=== PATIENT | male | born 1940 | race Hispanic/Latino ===

== ENCOUNTER 2021-05-16 09:17 | Emergency (ER) | payer MEDICARE, OTHER ==
[2021-05-16 10:10] LABS: #Basophils 0.1 thou/uL (0.0-0.2); #Eosinphils 0.2 thou/uL (0.0-0.7); #Lymphocytes 1.8 thou/uL (1.20-3.40); #Monocytes 0.8 thou/uL (0.11-0.59); #Neutrophils 6.4 thou/uL (1.40-6.50); %Basophils 0.6 % (0.0-1.0); %Eosinophils 1.7 % (0.0-10.0); %Lymphocytes 19.7 % (21.0-51.0); %Monocytes 8.3 % (0.0-10.0); %Neutrophils 69.8 % (42.0-75.0); Hemoglobin 11.6 g/dL (14.0-18.0); Mean Corpuscular HGB CONC 33.8 g/dL (32.0-36.0); Mean Corpuscular Hemoglobin 29.3 pg (27.0-31.0); Mean Corpuscular Volume 86.7 fL (78.0-98.0); Platelet Count 204 thou/uL (130-400); RBC Distribution Width 13.2 % (11.5-14.5); Red Blood Cell (RBC) Count 3.97 mill/uL (4.70-6.10); White Blood Cell (WBC) Count 9.1 thou/uL (4.8-10.8)
[2021-05-16 10:29] LABS: ALT (SGPT) 28 U/L (8-55); AST (SGOT) 17 U/L (5-34); Albumin 3.9 g/dL (3.4-4.8); Alkaline Phosphatase 170 U/L (40-110); Anion Gap 12 mmol/L (10-20); BUN (Urea Nitrogen) 40 mg/dL (8.4-25.7); Bilirubin, Total 0.6 mg/dL (0.2-1.2); Calc. Creatinine Clearance 0 mL/min (70-130); Calcium 9.8 mg/dL (7.8-10.44); Carbon Dioxide 23 mmol/L (23-31); Chloride 104 mmol/L (98-107); Globulin 2.9 g/dL (2.4-3.5); Glucose 188 mg/dL (83-110); Potassium 4.3 mmol/L (3.5-5.1); Protein, Total 6.8 g/dL (5.8-8.1); Sodium 135 mmol/L (136-145)
[2021-05-16 12:02] LABS: Bacteria/HPF None Seen HPF (None Seen); Bilirubin Negative (Negative); Blood, Urine Negative (Negative); Clarity Clear (Clear); Glucose, Urine (Dipstick) Normal (Negative); Ketone, Urine Negative (Negative); Leukocyte 75 Leu/uL (Negative); Nitrite Negative (Negative); Protein, Urine (Dipstick) Negative (Neg-Trace); RBC/HPF 0-3 HPF (0-3); Specific Gravity, Urine 1.015 (1.002-1.036); Squamous Epithelial 0-3 HPF (0-3); Urobilinogen Normal mg/dL (Less than 2); pH, Urine 5.5 (5.0-9.0)
== END 2021-05-16 14:06 | disposition home or self-care (01) ==
LOC: ERS 09:17
DX: R53.1 Weakness (principal); E11.9 Type 2 diabetes mellitus without complications; I10 Essential (primary) hypertension; E78.5 Hyperlipidemia, unspecified; Z79.84 Long term (current) use of oral hypoglycemic drugs
CPT/HCPCS: 36415; 71046; 80053; 81003; 81015; 84484; 85025; 93005

== ENCOUNTER 2021-06-05 03:38 | Inpatient (IN) | payer MEDICARE, OTHER ==
[2021-06-05 04:25] LABS: #Eosinphils 0.2 thou/uL (0.0-0.7); #Lymphocytes 1.4 thou/uL (1.20-3.40); #Monocytes 0.4 thou/uL (0.11-0.59); #Neutrophils 3.4 thou/uL (1.40-6.50); %Basophils 0.8 % (0.0-1.0); %Eosinophils 3.3 % (0.0-10.0); %Neutrophils 61.9 % (42.0-75.0); Hemoglobin 12.2 g/dL (14.0-18.0); Mean Corpuscular Hemoglobin 28.7 pg (27.0-31.0); Mean Platelet Volume 8.4 fL (7.4-10.4); Platelet Count 201 thou/uL (130-400); RBC Distribution Width 12.8 % (11.5-14.5); Red Blood Cell (RBC) Count 4.26 mill/uL (4.70-6.10); White Blood Cell (WBC) Count 5.5 thou/uL (4.8-10.8)
[2021-06-05 04:43] LABS: ALT (SGPT) 22 U/L (8-55); AST (SGOT) 15 U/L (5-34); Albumin 4.4 g/dL (3.4-4.8); Alkaline Phosphatase 164 U/L (40-110); Anion Gap 15 mmol/L (10-20); BUN (Urea Nitrogen) 27 mg/dL (8.4-25.7); Bilirubin, Total 0.4 mg/dL (0.2-1.2); CK (CPK) 136 U/L (30-200); Calc. Creatinine Clearance 0 mL/min (70-130); Calcium 10.4 mg/dL (7.8-10.44); Carbon Dioxide 27 mmol/L (23-31); Chloride 105 mmol/L (98-107); Globulin 3.4 g/dL (2.4-3.5); Glucose 328 mg/dL (83-110); Potassium 4.5 mmol/L (3.5-5.1); Protein, Total 7.8 g/dL (5.8-8.1); Sodium 142 mmol/L (136-145)
[2021-06-05] MEDS ORDERED: Aspirin Chewable 81 MG TAB ONE (05:59)
[2021-06-05 08:19] LABS: SARS-CoV-2 NAA Rapid Test Not Detected (NotDetected)
[2021-06-05] MEDS ORDERED: Dextrose 5% in Water 1,000 ML IV PRN (10:03)
[2021-06-05] MEDS ORDERED: Dextrose 50% Abboject 50 ML SYRINGE SLOW IVP PRN (10:03)
[2021-06-05] MEDS ORDERED: HumaLOG 300 UNITS/3 ML VIAL SC PRN (10:03)
[2021-06-05] MEDS ORDERED: Labetalol HCl 100 MG/20 ML VIAL SLOW IVP PRN (10:03)
[2021-06-05] MEDS ORDERED: hydrALAZINE 20 MG/ML VIAL SLOW IVP PRN (10:03)
[2021-06-05] MEDS ORDERED: Iopamidol-370 76% 500 ML 1 ML ONE (13:22)
[2021-06-05 16:34] VITALS: BMI 22.8
[2021-06-05] MEDS: HumaLOG 300 UNITS/3 ML VIAL SC PRN (17:29)
[2021-06-06 05:06] LABS: Hemoglobin 11.3 g/dL (14.0-18.0); Mean Corpuscular HGB CONC 33.1 g/dL (32.0-36.0); Mean Corpuscular Hemoglobin 28.8 pg (27.0-31.0); Mean Corpuscular Volume 87.2 fL (78.0-98.0); Red Blood Cell (RBC) Count 3.92 mill/uL (4.70-6.10); White Blood Cell (WBC) Count 6.5 thou/uL (4.8-10.8)
[2021-06-06 05:07] LABS: #Eosinphils 0.2 thou/uL (0.0-0.7); #Lymphocytes 1.7 thou/uL (1.20-3.40); #Monocytes 0.5 thou/uL (0.11-0.59); %Basophils 0.8 % (0.0-1.0); %Eosinophils 3.1 % (0.0-10.0); %Lymphocytes 26.1 % (21.0-51.0); %Monocytes 7.4 % (0.0-10.0); %Neutrophils 62.6 % (42.0-75.0); Mean Platelet Volume 8.2 fL (7.4-10.4); Platelet Count 179 thou/uL (130-400); RBC Distribution Width 12.6 % (11.5-14.5)
[2021-06-06 05:12] LABS: Hemoglobin A1c 10.1 % (4.0-6.0)
[2021-06-06 05:26] LABS: Anion Gap 12 mmol/L (10-20); BUN (Urea Nitrogen) 24 mg/dL (8.4-25.7); Calc. Creatinine Clearance 49 mL/min (70-130); Carbon Dioxide 25 mmol/L (23-31); Chloride 108 mmol/L (98-107); Potassium 4.5 mmol/L (3.5-5.1); Sodium 140 mmol/L (136-145)
[2021-06-06 05:27] LABS: Calcium 9.7 mg/dL (7.8-10.44); Cardiac Risk 2.5 (Less than 4.5); Cholesterol 149 mg/dl (< 200 Desired); Glucose 143 mg/dL (83-110); HDL Cholesterol 60 mg/dL (>60 Neg Risk); LDL Cholesterol, Calculated 79 mg/dL; Triglycerides 49 mg/dL (Less than 150)
[2021-06-06] MEDS: Aspirin 81 mg Enteric Coated Tablet PO SCH (08:52)
[2021-06-06] MEDS: HumaLOG 300 UNITS/3 ML VIAL SC PRN ×3 (10:45→22:33)
[2021-06-06] MEDS: metFORMIN 500 MG TAB PO SCH (17:09)
[2021-06-06] MEDS ORDERED: Dextrose 5% in Water 1,000 ML IV PRN (18:16)
[2021-06-06] MEDS ORDERED: Dextrose 50% Abboject 50 ML SYRINGE SLOW IVP PRN (18:16)
[2021-06-06] MEDS: Atorvastatin Calcium 40 MG TAB PO SCH (22:31)
[2021-06-06] MEDS: Carvedilol 6.25 MG TAB PO SCH (22:31)
[2021-06-06] MEDS: Tamsulosin HCl 0.4 MG CAP PO SCH (22:32)
[2021-06-06] MEDS: Gabapentin 400 MG CAP PO SCH (22:32)
[2021-06-06] MEDS: Pramipexole Di-HCl 1 MG TAB PO SCH (22:32)
[2021-06-07 05:33] LABS: #Eosinphils 0.2 thou/uL (0.0-0.7); #Lymphocytes 1.5 thou/uL (1.20-3.40); #Monocytes 0.5 thou/uL (0.11-0.59); #Neutrophils 4.2 thou/uL (1.40-6.50); %Eosinophils 2.7 % (0.0-10.0); %Lymphocytes 22.9 % (21.0-51.0); %Monocytes 8.4 % (0.0-10.0); Hemoglobin 11.2 g/dL (14.0-18.0); Mean Corpuscular HGB CONC 32.8 g/dL (32.0-36.0); Mean Corpuscular Hemoglobin 28.6 pg (27.0-31.0); Mean Corpuscular Volume 87.2 fL (78.0-98.0); Mean Platelet Volume 8.2 fL (7.4-10.4); Platelet Count 188 thou/uL (130-400); RBC Distribution Width 12.7 % (11.5-14.5); Red Blood Cell (RBC) Count 3.92 mill/uL (4.70-6.10); White Blood Cell (WBC) Count 6.4 thou/uL (4.8-10.8)
[2021-06-07 05:51] LABS: Anion Gap 13 mmol/L (10-20); BUN (Urea Nitrogen) 29 mg/dL (8.4-25.7); Calc. Creatinine Clearance 42 mL/min (70-130); Calcium 9.4 mg/dL (7.8-10.44); Carbon Dioxide 24 mmol/L (23-31); Chloride 104 mmol/L (98-107); Glucose 157 mg/dL (83-110); Potassium 3.8 mmol/L (3.5-5.1); Sodium 137 mmol/L (136-145)
[2021-06-07] MEDS ORDERED: LIRAGLUTIDE 0.6 MG/0.1 ML SC SCH (09:00)
[2021-06-07] MEDS: metFORMIN 500 MG TAB PO SCH ×2 (09:37→18:09)
[2021-06-07] MEDS: Pramipexole Di-HCl 1 MG TAB PO SCH ×2 (09:37→09:42)
[2021-06-07] MEDS: Aspirin 81 mg Enteric Coated Tablet PO SCH ×2 (09:39→09:42)
[2021-06-07] MEDS: Gabapentin 100 MG CAP PO SCH (09:40)
[2021-06-07] MEDS: Finasteride 5 MG TAB PO SCH (09:43)
[2021-06-07] MEDS: Carvedilol 6.25 MG TAB PO SCH ×2 (09:43→21:56)
[2021-06-07] MEDS: Clopidogrel Bisulfate 75 MG TAB PO SCH (09:45)
[2021-06-07] MEDS: HumaLOG 300 UNITS/3 ML VIAL SC PRN ×2 (13:43→18:09)
[2021-06-07] MEDS: Tamsulosin HCl 0.4 MG CAP PO SCH (21:56)
[2021-06-07] MEDS: Atorvastatin Calcium 40 MG TAB PO SCH (21:56)
[2021-06-07] MEDS: Gabapentin 400 MG CAP PO SCH (22:01)
[2021-06-08 06:23] LABS: #Eosinphils 0.2 thou/uL (0.0-0.7); #Lymphocytes 1.8 thou/uL (1.20-3.40); #Monocytes 0.5 thou/uL (0.11-0.59); #Neutrophils 3.8 thou/uL (1.40-6.50); %Basophils 0.1 % (0.0-1.0); %Eosinophils 3.1 % (0.0-10.0); %Lymphocytes 28.9 % (21.0-51.0); %Monocytes 8.2 % (0.0-10.0); %Neutrophils 59.7 % (42.0-75.0); Mean Corpuscular HGB CONC 32.2 g/dL (32.0-36.0); Mean Corpuscular Hemoglobin 27.9 pg (27.0-31.0); Mean Corpuscular Volume 86.7 fL (78.0-98.0); Platelet Count 180 thou/uL (130-400); RBC Distribution Width 12.6 % (11.5-14.5); Red Blood Cell (RBC) Count 3.94 mill/uL (4.70-6.10); White Blood Cell (WBC) Count 6.4 thou/uL (4.8-10.8)
[2021-06-08 06:49] LABS: Anion Gap 12 mmol/L (10-20); BUN (Urea Nitrogen) 40 mg/dL (8.4-25.7); Calc. Creatinine Clearance 37 mL/min (70-130); Calcium 9.1 mg/dL (7.8-10.44); Carbon Dioxide 24 mmol/L (23-31); Chloride 104 mmol/L (98-107); Glucose 214 mg/dL (83-110); Potassium 3.9 mmol/L (3.5-5.1); Sodium 136 mmol/L (136-145)
[2021-06-08] MEDS: HumaLOG 300 UNITS/3 ML VIAL SC PRN ×4 (07:00→22:54)
[2021-06-08] MEDS: Carvedilol 6.25 MG TAB PO SCH ×2 (08:52→22:46)
[2021-06-08] MEDS: Gabapentin 100 MG CAP PO SCH (08:52)
[2021-06-08] MEDS: Clopidogrel Bisulfate 75 MG TAB PO SCH (08:52)
[2021-06-08] MEDS: Finasteride 5 MG TAB PO SCH (08:52)
[2021-06-08] MEDS: metFORMIN 500 MG TAB PO SCH ×2 (08:52→16:31)
[2021-06-08] MEDS: Pramipexole Di-HCl 1 MG TAB PO SCH ×2 (08:53→22:48)
[2021-06-08] MEDS: Atorvastatin Calcium 40 MG TAB PO SCH (22:48)
[2021-06-08] MEDS: Gabapentin 400 MG CAP PO SCH (22:50)
[2021-06-08] MEDS: Tamsulosin HCl 0.4 MG CAP PO SCH (22:51)
[2021-06-09 06:35] LABS: #Eosinphils 0.2 thou/uL (0.0-0.7); #Lymphocytes 1.5 thou/uL (1.20-3.40); #Monocytes 0.6 thou/uL (0.11-0.59); #Neutrophils 3.9 thou/uL (1.40-6.50); %Basophils 0.4 % (0.0-1.0); %Eosinophils 2.6 % (0.0-10.0); %Lymphocytes 23.8 % (21.0-51.0); %Monocytes 10.3 % (0.0-10.0); Hemoglobin 10.9 g/dL (14.0-18.0); Mean Corpuscular HGB CONC 31.2 g/dL (32.0-36.0); Mean Corpuscular Hemoglobin 27.1 pg (27.0-31.0); Mean Corpuscular Volume 86.9 fL (78.0-98.0); Mean Platelet Volume 8.3 fL (7.4-10.4); Platelet Count 174 thou/uL (130-400); RBC Distribution Width 12.8 % (11.5-14.5); Red Blood Cell (RBC) Count 4.03 mill/uL (4.70-6.10); White Blood Cell (WBC) Count 6.3 thou/uL (4.8-10.8)
[2021-06-09 06:57] LABS: Anion Gap 13 mmol/L (10-20); BUN (Urea Nitrogen) 39 mg/dL (8.4-25.7); Calc. Creatinine Clearance 40 mL/min (70-130); Calcium 9.3 mg/dL (7.8-10.44); Carbon Dioxide 22 mmol/L (23-31); Chloride 107 mmol/L (98-107); Glucose 250 mg/dL (83-110); Sodium 138 mmol/L (136-145)
[2021-06-09] MEDS: HumaLOG 300 UNITS/3 ML VIAL SC PRN ×2 (07:01→14:46)
[2021-06-09] MEDS: Clopidogrel Bisulfate 75 MG TAB PO SCH (10:07)
[2021-06-09] MEDS: metFORMIN 500 MG TAB PO SCH (10:07)
[2021-06-09] MEDS: Carvedilol 6.25 MG TAB PO SCH (10:07)
[2021-06-09] MEDS: Aspirin 81 mg Enteric Coated Tablet PO SCH (10:07)
[2021-06-09] MEDS: Pramipexole Di-HCl 1 MG TAB PO SCH (10:08)
[2021-06-09] MEDS: Finasteride 5 MG TAB PO SCH (10:08)
[2021-06-09] MEDS: Gabapentin 100 MG CAP PO SCH (10:08)
[2021-06-09 11:49] VITALS: BP 129/69; TEMP 97.7
== END 2021-06-09 15:25 | disposition home health service (06) | DRG 69 ==
LOC: ERS 03:38 → ERHOLD 08:44 → 3SE 14:53 → OBSVTOIN 06-07 16:22
PROVIDERS: ADMIT Family Medicine; ATTEND Internal Medicine
DX: G45.9 Transient cerebral ischemic attack, unspecified (principal); E78.5 Hyperlipidemia, unspecified; N40.0 Benign prostatic hyperplasia without lower urinary tract symptoms; N18.30 Chronic kidney disease, stage 3 unspecified; Z20.822 Contact with and (suspected) exposure to COVID-19; H91.92 Unspecified hearing loss, left ear; E11.22 Type 2 diabetes mellitus with diabetic chronic kidney disease; E78.00 Pure hypercholesterolemia, unspecified; I12.9 Hypertensive chronic kidney disease with stage 1 through stage 4 chronic kidney disease, or unspecified chronic kidney disease; Z83.3 Family history of diabetes mellitus; I69.998 Other sequelae following unspecified cerebrovascular disease; Z95.0 Presence of cardiac pacemaker; Z79.01 Long term (current) use of anticoagulants; Z79.84 Long term (current) use of oral hypoglycemic drugs; Z79.899 Other long term (current) drug therapy
CPT/HCPCS: 36415; 36416; 70450; 70496; 70498; 71045; 80048; 80053; 80061; 82550; 83036; 84484; 85025; 93005; 93306; 95712; 95819; 95957; G0378; J1815; Q9967; U0002